=== PATIENT | female | born 1975 | race Caucasian/White ===

== ENCOUNTER 2017-05-29 20:17 | Emergency (ER) | payer BC ==
[~2017-05-29] VITALS: Ht 167.6 cm; Wt 106.2 kg
[~2017-05-29 20:17] MED LIST: LISI-461 PO; METF-384 PO
[2017-05-29 20:29] VITALS: BP 157/86; PULSE 100; TEMP 36.7; O2SAT 99; Ht 167.6 cm; Wt 106.2 kg
[2017-05-29] MEDS ORDERED: LOSA1TAB PO (20:46)
[2017-05-29] MEDS ORDERED: SITA25TA PO (20:47)
[2017-05-29] MEDS ORDERED: LEVO100T PO (20:47)
[2017-05-29] MEDS ORDERED: XYLOCAINE 1%/SOD BICARB 20 ML VIAL INFIL ONE (21:15)
--- NOTE | 2017-05-29 22:49 | EMERGENCY ROOM VISIT NOTE ---
History First contact with patient: 21:04 Chief Complaint: LACERATION/CUT (SUT/DERMABOND) Stated Complaint: LACERATION TO LEFT HAND, 2ND DIGIT Nursing Triage Summary: Patient cut her left pointer finger on teacup planter. History of Present Illness The patient is a 41 year old female who presents to the Emergency Room with complaints of a laceration to her left index finger. The patient reports that she bought a birdfeeder and was attempting to push it into the ground when part of the feeder broke and cut her finger. The patient reports significant bleeding. She rates her discomfort a 2 out of 10. The patient is right-hand- dominant, and tetanus immunization is up-to-date. Review of Systems 6 system review was performed and was negative except for pertinent positives and negatives as indicated in history of present illness Past Medical/Surgical History Medical Problems: (1) delivery delivered (2) Diabetes (3) Hypertension Family History Diabetes mellitus Heart disease Hypertension Social History Smoking Status: Never Smoker Alcohol Use: none Marital Status: Housing Status: lives with family Occupation Status: employed Current/Historical Medications Scheduled Levothyroxine Sodium (Synthroid), 100 MCG PO DAILY Losartan Potassium (Cozaar), 1 TAB PO DAILY Metformin Hcl (Glucophage), 1,000 MG PO BID Sitagliptin (Januvia), 1 TAB PO DAILY Allergies Coded Allergies: No Known Allergies (Verified , N, 05/29/17) Physical Exam Vital Signs Date Time Temp Pulse Resp B/P (MAP) Pulse Ox O2 Delivery O2 Flow Rate FiO2 05/29/17 20:29 36.7 100 18 157/86 99 Room Air Pain Rating (0-10): 0 Physical Exam CONSTITUTIONAL: Healthy and well nourished. Alert and oriented X 3 with positive affect. She does not appear in any acute distress. HEENT: Normocephalic, atraumatic. Pupils equal, round and reactive. NECK: Full active range of motion without discomfort. MUSCULOSKELETAL: Examination of the left index finger shows a flap laceration with repaired length of 3 cm. Mild bleeding is noted. The patient is able to flex the finger against resistance. Capillary refill of the fingertip is less than 2 seconds. INTEGUMENTARY: No rash or other significant dermatologic conditions noted. NEUROLOGIC: No focal neurologic deficits noted. Left index finger is sensory intact. Medical Decision & Procedures Procedure Laceration repair was performed under digital block anesthesia after receiving verbal consent from the patient. Using buffered 1% lidocaine without epinephrine, digital block anesthesia was administered. The peripheral tissue was then cleansed with iodine, then the wound was copiously pressure irrigated from a saline. Examination of the wound shows that the flap is superficial and partial dermal thickness. The flap is not devitalized. There is no extension into the underlying subcutaneous layer, and flexor tendon function was intact. The wound was then approximated using 6-0 nylon simple interrupted sutures because of its size. A bacitracin dressing was applied. ED Course Patient history and physical exam were performed. Nurse's notes were reviewed. Vital signs were reviewed, showing a blood pressure 157/86. I did encourage the patient to follow-up with her PCP for blood pressure monitoring. The patient was also provided additional verbal and written wound care instructions. Ice for swelling. Ibuprofen or Tylenol as needed for pain. Suture removal in 12-14 days, or seek reevaluation sooner for any signs of wound infection. The patient was happy with plan of care, voiced understanding of all discharge instructions, and denied any pain at the time of discharge. Medical Decision Impression Primary Impression: Laceration of left index finger Departure Information Dispostion Home / Self-Care Forms HOME CARE DOCUMENTATION FORM, IMPORTANT VISIT INFORMATION Patient Instructions My [facility] Additional Instructions Keep wound clean, dry and covered with an antibiotic ointment. Use an antibiotic ointment for 3-4 days, then let wound dry. Suture removal in 12-14 days. Return sooner for any signs of infection (increasing redness, swelling, drainage). Ice and elevate for swelling and pain. Ibuprofen 600 mg and/or Tylenol 1000 mg every 6 hrs if needed for pain. Problem Qualifiers Primary Impression: Laceration of left index finger Encounter type: initial encounter Damage to nail status: without damage Foreign body presence: without foreign body Qualified Codes: S61.211A - Laceration without foreign body of left index finger without damage to nail, initial encounter
== END 2017-05-29 22:29 | disposition home or self-care (01) ==
LOC: C.EDB 20:18 → C.EDD 22:29
DX: S61.211A Laceration without foreign body of left index finger without damage to nail, initial encounter (principal); W45.8XXA Other foreign body or object entering through skin, initial encounter; E11.9 Type 2 diabetes mellitus without complications; I10 Essential (primary) hypertension; Z83.3 Family history of diabetes mellitus; Z82.49 Family history of ischemic heart disease and other diseases of the circulatory system; Z79.899 Other long term (current) drug therapy

== ENCOUNTER 2018-03-06 12:00 | Emergency (ER) | payer BC, OTHER ==
[~2018-03-06] VITALS: Ht 170.2 cm; Wt 103.6 kg
[~2018-03-06 12:00] MED LIST changes: +LEVO100T PO; -LISI-461 PO; +LOSA1TAB PO; +SITA25TA PO
[2018-03-06 12:02] VITALS: TEMP 36.7; Ht 170.2 cm; Wt 103.6 kg
[2018-03-06] MEDS ORDERED: LEVO112T2 PO (12:11)
--- NOTE | 2018-03-06 13:40 | DIAGNOSTIC IMAGING REPORT ---
R KNEE 1 OR 2 VIEWS ROUTINE CLINICAL HISTORY: Right knee pain/injury trauma. Pain. COMPARISON: None. DISCUSSION: The bones and joint spaces appear intact. There is no evidence of fracture, dislocation or bony disease. There is no evidence for soft tissue swelling. IMPRESSION: Negative study. The above report was generated using voice recognition software. It may contain grammatical, syntax or spelling errors. Electronically signed by: Orlando Chang M.D. 03/06/2018 1:38 PM Dictated Date/Time: 03/06/2018 1:38 PM
--- NOTE | 2018-03-06 13:59 | EMERGENCY ROOM VISIT NOTE ---
ED Visit Note First contact with patient: 12:12 CHIEF COMPLAINT: Right knee injury HISTORY OF PRESENT ILLNESS: This 42-year-old female presents to ER with chief complaint of right knee pain. The patient states that 1-1/2 weeks ago she injured her right knee from jumping over a gate. She states the pain was getting better but then today she slept on water on the floor and twisted her right knee. The patient did not fall to the ground. The patient is now complaining of increased knee pain. The patient denies any locking or giving out of the knee. The patient has seen [facility] orthopedics in the past for other orthopedic needs. REVIEW OF SYSTEMS: 6 system review was performed and was negative unless stated otherwise in history of present illness. PMH: The patient is healthy; there is no significant medical or surgical history. SOCIAL HISTORY: Patient lives with her family PHYSICAL EXAM: Vital Signs: Were reviewed reviewed Nurse's notes. GENERAL: 42- year-old white female appears in no acute distress. MENTAL STATUS: Alert, oriented, and cooperative. RIGHT KNEE: No gross bony deformity noted. No erythema or edema noted. There is no joint effusion. Full range of motion .There is no ligamentous instability. The skin is normal and intact. Positive [place] [facility] EMERGENCY DEPARTMENT COURSE: Patient was evaluated. The patient was offered pain meds but declined. X-ray of the right knee was ordered interpreted by the radiologist and myself. DIAGNOSTICS:R KNEE 1 OR 2 VIEWS ROUTINE CLINICAL HISTORY: Right knee pain/injury trauma. Pain. COMPARISON: None. DISCUSSION: The bones and joint spaces appear intact. There is no evidence of fracture, dislocation or bony disease. There is no evidence for soft tissue swelling. IMPRESSION: Negative study. The above report was generated using voice recognition software. It may contain grammatical, syntax or spelling errors. Electronically signed by: Orlando Chang M.D. 03/06/2018 1:38 PM DIAGNOSIS: Sprained right knee DISCHARGE INSTRUCTIONS: Ice and elevation as much as possible over the next 24 hours. Ibuprofen 600 mg every 6 hours with food for pain. Limit weightbearing as much as possible. Call [facility] orthopedics on Wednesday for follow-up appointment for definitive treatment. Problem List Medical Problems: (1) delivery delivered Status: Resolved (2) Diabetes Status: Chronic (3) Hypertension Status: Chronic Current/Historical Medications Scheduled Levothyroxine Sodium (Synthroid), 112 MCG PO DAILY Losartan Potassium (Cozaar), 1 TAB PO DAILY Metformin Hcl (Glucophage), 1,000 MG PO BID Sitagliptin (Januvia), 1 TAB PO DAILY Allergies Coded Allergies: No Known Allergies (Verified , N, 03/06/18) Vital Signs Date Time Temp Pulse Resp B/P (MAP) Pulse Ox O2 Delivery O2 Flow Rate FiO2 03/06/18 12:02 36.7 96 17 139/83 100 Room Air Departure Information Referrals Vonda Toney D.O. (PCP) Patient Instructions My [facility]
[2018-03-06 14:15] VITALS: BP 127/78; PULSE 71; O2SAT 99
== END 2018-03-06 14:16 | disposition home or self-care (01) ==
LOC: C.EDB 12:03 → C.EDD 14:16
DX: S83.91XA Sprain of unspecified site of right knee, initial encounter (principal); W01.0XXA Fall on same level from slipping, tripping and stumbling without subsequent striking against object, initial encounter; E11.9 Type 2 diabetes mellitus without complications; I10 Essential (primary) hypertension; Z79.84 Long term (current) use of oral hypoglycemic drugs; Z79.899 Other long term (current) drug therapy